=== PATIENT | female | born 2000 | race Hispanic/Latino ===

== ENCOUNTER 2019-07-05 18:25 | Outpatient (CLI) | payer MEDICAID ==
[2019-07-05] MEDS ORDERED: LACTATED RINGERS 500 ML IV ONE (18:30)
[2019-07-05 19:28] VITALS: BP 110/64
[2019-07-05 19:40] LABS: Bacteria,Urine 1+ /HPF (Negative); Bilirubin,Urine NEG (Negative); Blood,Urine NEG (Negative); Color,Urine Yellow (Yellow); Mucus,Urine 3+ /HPF; Protein,Urine <15 mg/dL mg/dL (Negative); Urobilinogen,Urine < 2.0 mg/dL (<2.0)
[2019-07-05] MEDS ORDERED: ONDANSETRON 4 MG/2 ML INJ IV ONE (20:04)
== END 2019-07-05 21:30 | disposition home or self-care (01) ==
LOC: TRG 18:25 → APU 18:26 → TRG 21:30
PROVIDERS: ATTEND Obstetrics & Gynecology
DX: O21.2 Late vomiting of pregnancy (principal); O47.03 False labor before 37 completed weeks of gestation, third trimester; Z3A.31 31 weeks gestation of pregnancy
CPT/HCPCS: 81001; J7120; J2405

== ENCOUNTER 2019-09-03 13:01 | Outpatient (CLI) | payer MEDICAID ==
--- NOTE | 2019-09-03 16:45 | Event Note ---
Date: 09/03/19 no change in SVE, remains /-2, posterior, medium softness. pt reports ctx have slowed down since resting. BPP 10/04, SOBEIDA 14. FHT reviewed reassuring. Plan to d/c home with labor precautions with PO vistaril.
--- NOTE | 2019-09-03 16:49 | Ultrasound Report ---
ULTRASOUND OBSTETRIC LIMITED ULTRASOUND BIOPHYSICAL PROFILE INDICATION / CLINICAL INFORMATION: Non reassurring FHT. COMPARISON: None available. FINDINGS: BREATHING MOVEMENT = 2 GROSS BODY MOVEMENT = 2 TONE = 2 QUALITATIVE AMNIOTIC FLUID VOLUME = 2 TOTAL BIOPHYSICAL SCORE = 8/8 AMNIOTIC FLUID INDEX (cm) = 14 PRESENTATION: Cephalic. HEART RATE (beats per minute): 161 ADDITIONAL FINDINGS: None. IMPRESSION: 1. Biophysical Score = 8/8 Signer Name: Greyson Alaniz MD Signed: 09/03/2019 4:45 PM Workstation Name: [employer]
[2019-09-03 17:14] VITALS: BP 119/70
== END 2019-09-03 17:24 | disposition home or self-care (01) ==
LOC: TRG 13:01 → APU 13:02 → TRG 17:24
PROVIDERS: ATTEND Obstetrics & Gynecology
DX: O47.1 False labor at or after 37 completed weeks of gestation (principal); Z3A.39 39 weeks gestation of pregnancy
CPT/HCPCS: 59025; 76815; 76819; Q0177

== ENCOUNTER 2019-09-05 14:33 | Inpatient (IN) | payer MEDICAID ==
[2019-09-05] MEDS ORDERED: MINERAL OIL 30 ML ORAL LIQD PO PRN (16:50)
[2019-09-05] MEDS ORDERED: LIDOCAINE (2%) 20 MG/1 ML VIAL 20 ML MDV INFILTRATI ONE (16:50)
[2019-09-05] MEDS ORDERED: ONDANSETRON 4 MG/2 ML INJ IV PRN (16:50)
[2019-09-05] MEDS ORDERED: BUTORPHANOL 2 MG/1 ML INJ IV PRN (16:50)
[2019-09-05] MEDS ORDERED: fentaNYL 100 MCG/2 ML INJ IV PRN (16:50)
[2019-09-05] MEDS ORDERED: TERBUTALINE 1 MG/1 ML INJ SUB-Q PRN (16:50)
[2019-09-05] MEDS ORDERED: OXYTOCIN DRIP 30 UNITS/500 ML BAG IV SCH (17:00)
[2019-09-05] MEDS ORDERED: OXYTOCIN 20 UNIT/1000ML DRIP 20 UNITS/1,000 ML BAG IV SCH (17:00)
--- NOTE | 2019-09-05 17:01 | History and Physical Report ---
History of Present Illness Date of examination: 09/05/19 Date of admission: 09/05/19 16:37 Chief complaint: SROM @ 1400 History of present illness: EDC Confirmation: 09/06/2019 Past History : 2 Term Births: 0 Premature Births: 0 Living Children: 0 Para: 0 Mult. Births: 0 Prev : 0 Aborta: 0 Elect. Ab: 0 Spont. Ab: 1 Ectopics: 0 Risk Factors: Smoked Tobacco Use: Current every day smoker Cigarettes: Yes -- 1 stick pack(s) per day, Year started: age 15 Years smoked: 3 Smokeless Tobacco Use: Never Counseled to quit/cut down: yes Tobacco Use Comments: Pt to try and cut back without medication Passive smoke exposure: yes Drug use: no HIV high-risk behavior: no Caffeine use: 1 drinks per day Alcohol use: no Exercise: yes Times per week: 1 Type of Exercise: walking Seatbelt use: preg-family and marriage counsellor % Sun Exposure: frequently Family History Risk Factors: Family History of [place] in females < 65 years old: no Family History of [place] in males < 55 years old: no Dietary Counseling: pn yes Past Medical History: Reviewed history and no changes required: Anxiety: since the age of 7 Past Surgical History: Reviewed history and no changes required: negative Past Medical History Anesthesia Complications: negative Anemia: negative Autoimmune Disorder: negative Bleeding Disorder: negative Blood Transfusions: negative Breast Disease: negative Diabetes: negative Heart Disease: negative Hypertension: negative Hepatitis/Liver Disease: negative Kidney Disease/UTI: negative Neurologic/Epilepsy/Migraines: negative Phlebitis/Varicosities: negative Psychiatric: positive, Anxiety Pulmonary Disease/Asthma: negative Thyroid Disease: negative Hospitalizations: negative Surgery (Non-general road supervisor): negative Abnormal PAP: negative SHAKIRA Exposure: negative Infertility: negative Uterine Anomaly: negative Uterine Surgery (not C/S): negative Other Gynecologic Problems: negative Family Hx: Mother: HTN Infection History Hx of STD: none HIV Risk Eval: no Hepatitis B Risk Eval: low risk Personal hx. of genital herpes: no Partner hx. of genital herpes: no Rash, Viral, or Febrile illness since last LMP? no Varicella/Chicken Pox Status: Unknown TB Risk: no Infection History Comments: Has never had chickenpox Genetic History Congenital Heart Defect: Mom: no Dad: no Alexis Disease: Mom: no Dad: no Thalassemia Mom: no Dad: no Neural Tube Defect Mom: no Dad: no Down's Syndrome Mom: no Dad: no Diego-Sachs Mom: no Dad: no Sickle Cell Disease/Trait Mom: no Dad: no Hemophilia Mom: no Dad: no Muscular Dystrophy Mom: no Dad: no Cystic Fibrosis Mom: no Dad: no [place] Chorea Mom: no Dad: no Mental Retardation Mom: no Dad: no Fragile X Mom: no Dad: no Other Genetic/Chromosomal Disorder Mom: no Dad: no Child w/other defect Mom: no Dad: no Enviromental Exposures Xray Exposure: no Medication, drug, or alcohol use since LMP: no Chemical/Other Exposure: no Exposure to Cat Liter: yes Hx of Parvovirus (Fifth Disease): no Occupational Exposure to Children: none Current Allergies (reviewed today): AUGMENTIN (AMOXICILLIN-POT CLAVULANATE) (Critical) Past History Past Medical History: other (see HPI) Past Surgical History: other (see HPI) WHOLESALE AGRONOMIST History: other (see HPI) Family/Genetic History: other (see HPI) - Obstetrical History Expected Date of Delivery: 09/06/19 Actual Gestation: 39 Week(s) 6 Day(s) : 2 Para: 0 Hx # Term Pregnancies: 0 Number of Pregnancies: 0 Spontaneous Abortions: 1 Induced : 0 Number of Living Children: 0 Medications and Allergies Allergies Allergy/AdvReac Type Severity Reaction Status Date / Time amoxicillin [From Augmentin] Allergy Rash Verified 07/05/19 19:31 clavulanic acid Allergy Rash Verified 07/05/19 19:31 [From Augmentin] Active Meds: Active Medications Butorphanol Tartrate (Stadol) 1 mg IV Q2H PRN PRN Reason: Pain, Moderate(4-6) LABOR PAIN Ephedrine Sulfate (Ephedrine Sulfate) 10 mg IV Q2M PRN PRN Reason: Hypotension Fentanyl (Sublimaze) 100 mcg IV Q2H PRN PRN Reason: Pain,Severe (7-10) LABOR PAIN Oxytocin/Sodium Chloride (Pitocin/Ns 20 Unit/1000ml Drip) 20 units in 1,000 mls @ 125 mls/hr IV DIRECT LOIS Oxytocin/Sodium Chloride (Pitocin/Ns 30 Unit/500ml) 30 units in 500 mls @ 4 mls/hr IV TITR LOIS; Protocol Lactated Ringer's (Lactated Ringers) 1,000 mls @ 125 mls/hr IV DIRECT LOIS Clindamycin HCl (Cleocin 900 Mg/50 Ml) 900 mg in 50 mls @ 100 mls/hr IV Q8HR LOIS; Protocol Lidocaine (Xylocaine 2%) 20 ml INFILTRATI ONCE ONE Stop: 09/05/19 16:51 Mineral Oil (Mineral Oil) 30 ml PO QHS PRN PRN Reason: Constipation Ondansetron HCl (Zofran) 4 mg IV Q8H PRN PRN Reason: Nausea And Vomiting Terbutaline Sulfate (Brethine) 0.25 mg SUB-Q ONCE PRN PRN Reason: Hyperstimulation/Hypertonicity Review of Systems All systems: negative - Vital Signs Vital signs: Vital Signs Pulse BP 102 H 114/77 09/05/19 14:59 09/05/19 14:59 Temp Pulse Resp BP Pulse Ox 98.8 F 100 H 16 114/78 09/05/19 16:43 09/05/19 15:18 09/05/19 15:18 09/05/19 15:18 - Physical Exam Breasts: Positive: normal Cardiovascular: Regular rate Lungs: Positive: Normal air movement Abdomen: Positive: normal appearance, soft, normal bowel sounds Genitourinary (Female): Positive: normal external genitalia, normal perenium Vulva: both: normal - Obstetrical FHR: category 1 Uterine Contraction Monitor Mode: External Cervical Dilatation: 4 (SROM - clear) Cervical Effacement Percentage: 80 station: -1 Uterine Contraction Pattern: Regular Uterine Tone Measurement Phase: Contraction Uterine Contraction Intensity: Mild Results All other labs normal. Assessment and Plan @ 39+6 weeks admitted for SROM - clear fluid. GBS +. Orders in EMR. Anticipate vaginal . - Patient Problems (1) 39 weeks gestation of Current Visit: Yes Status: Acute (2) SROM (spontaneous rupture of membranes) Current Visit: Yes Status: Acute Plan to address problem: Augment labor as needed limit SVE (3) Rh negative status during Current Visit: Yes Status: Acute Qualifiers: Trimester: third trimester Qualified Code(s): O26.893 - Other specified related conditions, third trimester; Z67.91 - Unspecified blood type, Rh negative Plan to address problem: Rhogam workup (4) Rubella non-immune status, antepartum Current Visit: Yes Status: Acute Plan to address problem: MMR (5) Group B Streptococcus carrier state affecting Onset Date: ~08/24/19 Current Visit: No Status: Acute Plan to address problem: Antibiotics q8hrs until delivery
[2019-09-05] MEDS: LACTATED RINGERS 1,000 ML IV SCH ×3 (17:13→21:34)
[2019-09-05 17:43] LABS: Hematocrit 32.4 % (30.3-42.9); Hemoglobin 10.6 gm/dl (10.1-14.3); Mean Corpuscular HGB Conc 33 % (30-34); Mean Corpuscular Volume 85 fl (79-97); Platelet Count 273 K/mm3 (140-440); Red Blood Count 3.79 M/mm3 (3.65-5.03); Red Cell Distribution Width 13.5 % (13.2-15.2)
--- NOTE | 2019-09-05 18:13 | Event Note ---
Date: 09/05/19 Phone call with Alma Rosa She states irregular contractions just starting pitocin will start at 4mu and increase per protocol orders
[2019-09-05] MEDS ORDERED: DEXMEDETOMIDINE 200 MCG/2 ML VIAL IV ONE (20:09)
[2019-09-05] MEDS ORDERED: NALOXONE 2 MG/2 ML INJ IV PRN (20:26)
[2019-09-05] MEDS ORDERED: ePHEDrine SULFATE 50 MG/1 ML INJ IV PRN (20:26)
--- NOTE | 2019-09-05 20:27 | Anesthesia Consultation ---
Anesthesia Consult and Med Hx Date of service: 09/05/19 - Airway Anesthetic Teeth Evaluation: Good ROM Head & Neck: Adequate Mental/Hyoid Distance: Adequate Mallampati Class: Class II Intubation Access Assessment: Probably Good - Pulmonary Exam CTA: Yes - Cardiac Exam Cardiac Exam: RRR - Pre-Operative Health Status ASA Pre-Surgery Classification: ASA2 Proposed Anesthetic Plan: Epidural - Pulmonary Hx Smoking: Yes Hx Asthma: No COPD: No Hx Pneumonia: No - Cardiovascular System Hx Hypertension: No - Central Nervous System Hx Seizures: No Hx Psychiatric Problems: Yes (ANXIETY) - Endocrine Hx Renal Disease: No Hx End Stage Renal Disease: No Hx Hypothyroidism: No Hx Hyperthyroidism: No - Hematic Hx Anemia: No Hx Sickle Cell Disease: No - Other Systems Hx Alcohol Use: No
--- NOTE | 2019-09-05 20:28 | Progress Note ---
Labor Epidural - Labor Epidural Start Time: 20:08 Stop Time: 20:18 Performed by:: KAZ RINALDI Procedure: Patient is requesting epidural for labor pain. H&P, and labs reviewed. Procedure explained, questions answered, consent obtained. Patient in sitting position with blood pressure cuff and pulse ox on and working. Timeout performed immediately before start of procedure. Sterile betadine prep/drape. 3 mL 1% lidocaine skin wheal at L[3]-L[4]. 18-gauge Touhy epidural needle advanced to [id number] with saline at 5 cm. 27-gauge spinal needle advanced until clear, free-flowing CSF. Intrathecal dexmedetomidine [5] mcg administered and needle removed. Epidural catheter advanced to 10 cm, negative aspiration for blood and csf, negative test dose 3 ml 1.5% lidocaine with epinephrine. Sterile steri-strips and tegaderm applied, followed by tape reinforcement. Patient tolerated procedure well.
[2019-09-05] MEDS: ePHEDrine SULFATE 50 MG/1 ML INJ IV PRN ×2 (20:33→20:42)
--- NOTE | 2019-09-05 20:41 | Event Note ---
Date: 09/05/19 Call to RN patient just received epidural no change in cervix will restart pitocin
[2019-09-05] MEDS ORDERED: fentaNYL-BUPIV 2 MCG/ML-0.125% 200 MCG/100 ML BAG EPIDURAL SCH (21:00)
[2019-09-06] MEDS ORDERED: METOCLOPRAMIDE 10 MG/2 ML INJ ONE (02:32)
[2019-09-06] MEDS ORDERED: FAMOTIDINE 20 MG/2 ML INJ IV ONE (02:32)
[2019-09-06] MEDS ORDERED: BICITRA ORAL LIQD 30ML ONE (02:32)
[2019-09-06] MEDS ORDERED: propofoL 200 MG/20 ML VIAL IV ONE (02:39)
[2019-09-06] MEDS ORDERED: SUCCINYLCHOLINE CHLORIDE 200 MG/10 ML INJ MDV ONE (02:39)
[2019-09-06] MEDS ORDERED: WATER FOR IRRIG STERILE 1,500 ML BOTTLE IR ONE (02:42)
[2019-09-06] MEDS ORDERED: SODIUM CHLORIDE 0.9% IRR 1,500 ML BOTTLE IR ONE (02:42)
[2019-09-06] MEDS ORDERED: ceFAZolin/STERILE WATER 2 GM/20 ML SYRINGE IV ONE (02:45)
[2019-09-06] MEDS ORDERED: PHENYLEPHRINE/NS 1,000 MCG/10 ML SYRINGE (OR USE) IV ONE (03:08)
[2019-09-06] MEDS ORDERED: ONDANSETRON 4 MG/2 ML INJ ONE (03:08)
[2019-09-06] MEDS ORDERED: BUPIVACAINE/PF (0.5%) 5 MG/1 ML 30 ML VIAL INFILTRATI ONE (03:09)
[2019-09-06] MEDS ORDERED: KETOROLAC 30 MG/1 ML INJ ONE (03:09)
[2019-09-06] MEDS ORDERED: LIDOCAINE 2%/EPINEPHRINE 1:200,000 VIAL (20 ML) INFILTRATI ONE (03:09)
--- NOTE | 2019-09-06 04:00 | Operative Report ---
Operative Report Operative Report: Date of procedure: September 06, 2019 Pre-operative diagnosis: Intrauterine of 40 weeks nonreassuring heart tracing with recurrent late heart rate decelerations, arrest of descent and prolonged bradycardia Post-operative diagnosis: Same Procedure name(s): Stat primary low transverse section Surgeon: Adrian Eller MD Career Guidance Counselor: Beatrice FREIRE Anesthesia: Gen. EBL: 500 mL Complications: None Findings: Normal uterus and tubes and ovaries bilaterally. Male with nuchal cord x1. Weight 8 pounds 5 ounces. Apgars 8 at 1 minute and 9 at 5 minutes Specimen(s): None Indications: Patient labor progress to a cervical dilatation of 10 cm with a station of 0. We had several attempts of trying the push the baby do vaginal delivery, but with this pushing the heart rate will continuously drop into the 80s and 70 bpm range with slow recovery. No resolution with changing of position and knee-chest position continue to have the bradycardia and decision was made to move quickly for operative delivery Procedure: The patient was brought to the operating room in a stat fashion. She was then placed in left lateral tilt. Prepped and draped in the usual sterile manner. Patient epidural level was not adequate for surgery. Gen. anesthesia was induced without difficulty. A Pfannenstiel incision was made. This incision was taken down to the fascia. The fascia was then nicked in the midline. This incision was extended out laterally with Howard scissors. The fascia was then sharply and bluntly from the underlying rectus muscles. The rectus muscles were bluntly and sharply . The peritoneum was then entered with the metallic yarn slitting machine operator's fingers. This incision was spread vertically with care not to damage the bladder below. Bladder blade was placed. The bladder flap was then formed sharply and bluntly with Metzenbaum scissors. Bladder blade replaced. A transverse incision was made in lower uterine segment. This incision was extended laterally with the operators fingers. The amniotic sac was then entered bluntly with the metallic yarn slitting machine operator's fingers. The was delivered from the vertex position. Bulb suction on the mother's abdomen. Cord was double clamped and cut. The infant was then passed to the nursery personnel who were in attendance. The above scores were given by the nursery personnel. The placenta was then bluntly removed. The uterus was then externalized and wiped clean the remaining products. The uterine incision was closed in layers. The first incision was closed in a locking manner using 0 Vicryl. This was followed by imbricating stitch also with 0 Vicryl. This closure was hemostatic. The bladder flap was copiously irrigated and found to be hemostatic. The pelvis was copiously irrigated and found to be hemostatic. The uterus was then placed back to the patient's abdomen. The retractors were removed. The rectus muscles were inspected and found to be hemostatic. The fascia was then closed in a running manner using 0 Vicryl. This incision was hemostatic irrigation Bovie. The skin was reapproximated with 4-0 Vicryl subcuticularly. The patient tolerated procedure well. Her urine was clear. The was admitted to the [facility] nursery. The patient was accompanied to recovery room in good condition. Instrument count correct 3.
[2019-09-06] MEDS ORDERED: WITCH HAZEL/ GLYCERIN PAD TP PRN (05:37)
[2019-09-06] MEDS ORDERED: ONDANSETRON 4 MG/2 ML INJ IV PRN (05:37)
[2019-09-06] MEDS ORDERED: HYDROcodone/ACETAMINOPHEN 5-325 MG TAB PO PRN (05:37)
[2019-09-06] MEDS ORDERED: OXYTOCIN 20 UNIT/1000ML DRIP 20 UNITS/1,000 ML BAG IV SCH (05:37)
[2019-09-06] MEDS ORDERED: ACETAMINOPHEN 325 MG TAB PO PRN (05:37)
[2019-09-06] MEDS ORDERED: NALOXONE 0.4 MG/1 ML INJ IV PRN (05:37)
[2019-09-06] MEDS ORDERED: MAGNESIUM HYDROXIDE (MOM) ORAL LIQD UDC PO PRN (05:37)
[2019-09-06] MEDS ORDERED: D5W/LACTATED RINGERS 1,000 ML IV SCH (05:37)
[2019-09-06] MEDS ORDERED: LANOLIN/ZINC/DIMETHICONE (LANSINOH) 7 GM TP PRN (05:37)
[2019-09-06] MEDS ORDERED: BICITRA ORAL LIQD 30ML PO ONE (06:23)
[2019-09-06] MEDS ORDERED: METOCLOPRAMIDE 10 MG/2 ML INJ IV ONE (07:00)
[2019-09-06] MEDS ORDERED: FAMOTIDINE 20 MG TAB PO NR (07:00)
[2019-09-06] MEDS: KETOROLAC 30 MG/1 ML INJ IV SCH ×3 (07:03→17:47)
[2019-09-06] MEDS: CLINDAMYCIN 600 MG/50 mL 600 MG/50 ML BAG IV SCH ×2 (08:13→16:35)
[2019-09-06] MEDS: PRENATAL VIT27-FE FUMARATE-FOLIC ACID VIT TAB PO SCH (09:33)
[2019-09-06] MEDS: FERROUS SULFATE 325 MG TAB PO SCH (09:33)
--- NOTE | 2019-09-06 17:33 | Progress Note ---
Assessment and Plan A: 19 y.o. s/p primary at term post op 14 hours. Pain medication now 2 Byron. P: Will monitor pain response after pain medication change. Continue with care. Subjective - Subjective Date of service: 09/06/19 (still having pain) Principal diagnosis: s/p primary @ term, POD 14 hours Patient reports: appetite normal, pain poorly controlled, ambulating normally : doing well Objective - Vital Signs Latest vital signs: Vital Signs Temp Pulse Resp BP BP Pulse Ox 09/06/19 07:03 18 09/06/19 06:37 97.4 F L 66 18 131/88 100 09/06/19 06:08 97.6 F 66 16 111/78 99 09/06/19 05:30 97 F L 83 18 120/83 09/06/19 05:15 97.0 F L 64 18 110/77 97 09/06/19 05:00 74 19 117/82 99 09/06/19 04:45 56 L 13 135/89 09/06/19 04:30 70 18 135/89 98 09/06/19 04:15 97.4 F L 58 L 16 133/93 98 09/06/19 03:55 66 23 130/89 100 09/06/19 03:50 96.5 F L 60 19 137/81 100 09/06/19 03:45 73 19 137/81 100 09/06/19 03:40 95.6 F L 62 16 128/89 100 09/06/19 02:32 107 H 121/76 09/06/19 02:21 76 100 09/06/19 02:17 68 149/67 09/06/19 02:16 71 100 09/06/19 02:11 76 100 09/06/19 02:06 84 100 09/06/19 02:01 85 119/81 99 09/06/19 01:56 76 99 09/06/19 01:51 77 99 09/06/19 01:48 68 122/81 09/06/19 01:46 71 100 09/06/19 01:41 70 100 09/06/19 01:36 68 100 09/06/19 01:31 78 102/66 100 09/06/19 01:26 72 100 09/06/19 01:21 75 100 09/06/19 01:16 79 102/67 100 09/06/19 01:11 73 100 09/06/19 01:06 67 100 09/06/19 01:02 85 97/53 09/06/19 01:01 92 H 100 09/06/19 00:56 95 H 100 09/06/19 00:51 78 100 09/06/19 00:46 83 107/80 100 09/06/19 00:41 85 100 09/06/19 00:36 68 100 09/06/19 00:33 76 120/80 09/06/19 00:31 71 100 09/06/19 00:26 67 100 09/06/19 00:21 67 100 09/06/19 00:16 72 108/77 100 09/06/19 00:11 63 100 09/06/19 00:06 64 100 09/06/19 00:02 80 110/77 09/06/19 00:01 79 98 09/05/19 23:56 73 98 09/05/19 23:51 85 98 09/05/19 23:47 72 105/70 09/05/19 23:46 70 98 09/05/19 23:41 81 99 09/05/19 23:36 77 98 09/05/19 23:33 72 109/67 09/05/19 23:31 74 98 09/05/19 23:26 71 98 09/05/19 23:21 73 98 09/05/19 23:17 72 109/65 09/05/19 23:16 70 98 09/05/19 23:11 74 98 09/05/19 23:06 78 98 09/05/19 23:01 82 122/74 98 09/05/19 22:56 79 98 09/05/19 22:51 74 99 09/05/19 22:46 68 132/84 99 09/05/19 22:41 97 H 99 09/05/19 22:36 65 100 09/05/19 22:31 68 138/92 100 09/05/19 22:26 79 100 09/05/19 22:21 74 100 09/05/19 22:18 74 122/89 09/05/19 22:16 75 100 09/05/19 22:11 87 100 09/05/19 22:06 82 100 09/05/19 22:02 66 119/77 09/05/19 22:01 69 100 09/05/19 21:56 82 99 09/05/19 21:51 77 100 09/05/19 21:49 66 123/71 09/05/19 21:46 72 100 09/05/19 21:41 63 100 09/05/19 21:36 73 100 09/05/19 21:31 60 118/71 100 09/05/19 21:28 71 109/71 09/05/19 21:26 65 100 09/05/19 21:21 60 100 09/05/19 21:16 59 L 100 09/05/19 21:11 74 100 09/05/19 21:06 74 100 09/05/19 21:01 66 114/67 100 09/05/19 20:59 68 120/70 09/05/19 20:57 77 113/71 09/05/19 20:56 84 100 09/05/19 20:55 66 115/73 09/05/19 20:53 73 115/70 09/05/19 20:51 85 115/71 100 09/05/19 20:49 82 114/77 09/05/19 20:47 63 112/68 09/05/19 20:46 64 100 09/05/19 20:45 57 L 116/71 09/05/19 20:43 62 120/76 09/05/19 20:41 69 116/60 99 09/05/19 20:39 61 119/62 09/05/19 20:37 71 121/66 09/05/19 20:36 70 97 09/05/19 20:35 72 121/65 09/05/19 20:33 67 114/71 09/05/19 20:31 65 114/71 98 09/05/19 20:29 72 119/71 09/05/19 20:27 73 111/78 09/05/19 20:26 68 98 09/05/19 20:25 73 113/70 09/05/19 20:24 63 125/71 09/05/19 20:21 74 116/82 99 09/05/19 20:19 67 115/78 09/05/19 20:16 67 98 09/05/19 20:11 77 99 09/05/19 20:06 71 98 09/05/19 20:03 71 136/90 09/05/19 20:01 67 98 09/05/19 19:56 65 98 09/05/19 19:51 63 99 09/05/19 19:46 70 99 09/05/19 19:45 98.1 F 70 18 131/84 100 09/05/19 19:41 77 98 09/05/19 19:33 83 131/84 99 09/05/19 19:28 74 99 09/05/19 19:23 71 97 09/05/19 19:18 70 99 09/05/19 19:13 72 98 09/05/19 19:08 98 09/05/19 19:02 74 122/80 09/05/19 19:01 75 98 09/05/19 18:56 72 98 09/05/19 18:51 71 99 09/05/19 18:46 77 99 09/05/19 18:41 75 99 09/05/19 18:36 82 98 09/05/19 18:33 71 116/75 09/05/19 18:31 72 99 09/05/19 18:26 76 98 09/05/19 18:21 80 99 09/05/19 18:16 85 99 09/05/19 18:11 81 99 09/05/19 17:55 83 98 Intake and Output 09/06/19 09/06/19 09/06/19 06:59 14:59 22:59 Intake Total 1067.733 50 Output Total 3250 Balance -2182.267 50 Intake: IV 1067.733 50 CLEOCIN 600 MG/50 mL 600 50 mg In 50 ml @ 100 mls/hr IV Q8H LOIS Rx#:[id number] CLEOCIN 900 MG/50 mL 900 50 mg In 50 ml @ 100 mls/hr IV Q8HR LOIS Rx#:[id number] PITOCin/NS 30 UNIT/500ML 17.733 30 units In 500 ml @ 4 mls/hr IV TITR LOIS Rx#: [id number] Output: Urine 3250 Indwelling Catheter 1000 Ureteral 1300 Void 300 Other: Total, Output Amount 1300 # Voids Indwelling Catheter 400 - Exam Narrative Exam: VSS. Adequate I&O's, H/H 10.1/31.5. Breasts: Present: deferred Cardiovascular: Present: Regular rate Lungs: Present: Normal air movement Abdomen: Present: normal appearance, soft, normal bowel sounds Vulva: both: normal Uterus: Present: normal, firm Extremities: Present: normal Deep Tendon Reflex Grade: Normal +2 Incision: Present: suppurative, intact, dressed Comments: Pt with c/o pain and burning in the incision area. Received 1 Byron without relief. Byron changed to 2. RN taking care of patient aware. Spoke with pt and updated her on plans to receive 2 pain pills, instead of one and we will monitor her pain to make sure that she gets some relief. Pt verbalized understanding. - Labs Labs: Abnormal lab results 09/05/19 Range/Units 17:10 WBC 12.0 H (4.5-11.0) K/mm3
[2019-09-06] MEDS: HYDROcodone/ACETAMINOPHEN 5-325 MG TAB PO PRN (17:46)
[2019-09-06 18:19] LABS: Hematocrit 31.5 % (30.3-42.9); Hemoglobin 10.1 gm/dl (10.1-14.3)
[2019-09-07] MEDS: KETOROLAC 30 MG/1 ML INJ IV SCH ×2 (00:39→06:00)
[2019-09-07] MEDS ORDERED: MEASLES, MUMPS & RUBELLA 12,500 UNIT/0.5 ML VACCINE SUB-Q ONE (06:00)
[2019-09-07] MEDS: IBUPROFEN 800 MG TAB PO PRN ×2 (07:30→21:47)
[2019-09-07] MEDS: HYDROcodone/ACETAMINOPHEN 5-325 MG TAB PO PRN ×2 (09:56→16:23)
[2019-09-07] MEDS: PRENATAL VIT27-FE FUMARATE-FOLIC ACID VIT TAB PO SCH (09:56)
[2019-09-07] MEDS: FERROUS SULFATE 325 MG TAB PO SCH (09:56)
--- NOTE | 2019-09-07 12:08 | Progress Note ---
Assessment and Plan patient doing well, no complaints. VSSAf, H&H 10.1/31.5. lochia scant, fundus firm - Patient Problems (1) Rh negative status during Current Visit: Yes Status: Acute Qualifiers: Trimester: third trimester Qualified Code(s): O26.893 - Other specified related conditions, third trimester; Z67.91 - Unspecified blood type, Rh negative Plan to address problem: Rhogam workup (2) Rubella non-immune status, antepartum Current Visit: Yes Status: Acute Plan to address problem: MMR prior to d/c home (3) delivery delivered Current Visit: Yes Status: Acute Plan to address problem: continue to advance diet and activity as tolerated Shower this afternoon - rn will remove dressing after shower. Consider d/c home tomorrow Subjective - Subjective Date of service: 09/07/19 Principal diagnosis: postop day #1 s/p c/s Interval history: EDC Confirmation: 09/06/2019 Past History : 2 Term Births: 0 Premature Births: 0 Living Children: 0 Para: 0 Mult. Births: 0 Prev : 0 Aborta: 0 Elect. Ab: 0 Spont. Ab: 1 Ectopics: 0 Risk Factors: Smoked Tobacco Use: Current every day smoker Cigarettes: Yes -- 1 stick pack(s) per day, Year started: age 15 Years smoked: 3 Smokeless Tobacco Use: Never Counseled to quit/cut down: yes Tobacco Use Comments: Pt to try and cut back without medication Passive smoke exposure: yes Drug use: no HIV high-risk behavior: no Caffeine use: 1 drinks per day Alcohol use: no Exercise: yes Times per week: 1 Type of Exercise: walking Seatbelt use: preg-career counselor % Sun Exposure: frequently Family History Risk Factors: Family History of [place] in females < 65 years old: no Family History of [place] in males < 55 years old: no Dietary Counseling: pn yes Past Medical History: Reviewed history and no changes required: Anxiety: since the age of 7 Past Surgical History: Reviewed history and no changes required: negative Past Medical History Anesthesia Complications: negative Anemia: negative Autoimmune Disorder: negative Bleeding Disorder: negative Blood Transfusions: negative Breast Disease: negative Diabetes: negative Heart Disease: negative Hypertension: negative Hepatitis/Liver Disease: negative Kidney Disease/UTI: negative Neurologic/Epilepsy/Migraines: negative Phlebitis/Varicosities: negative Psychiatric: positive, Anxiety Pulmonary Disease/Asthma: negative Thyroid Disease: negative Hospitalizations: negative Surgery (Non-disk recordist): negative Abnormal PAP: negative SHAKIRA Exposure: negative Infertility: negative Uterine Anomaly: negative Uterine Surgery (not C/S): negative Other Gynecologic Problems: negative Family Hx: Mother: HTN Infection History Hx of STD: none HIV Risk Eval: no Hepatitis B Risk Eval: low risk Personal hx. of genital herpes: no Partner hx. of genital herpes: no Rash, Viral, or Febrile illness since last LMP? no Varicella/Chicken Pox Status: Unknown TB Risk: no Infection History Comments: Has never had chickenpox Genetic History Congenital Heart Defect: Mom: no Dad: no Alexis Disease: Mom: no Dad: no Thalassemia Mom: no Dad: no Neural Tube Defect Mom: no Dad: no Down's Syndrome Mom: no Dad: no Diego-Sachs Mom: no Dad: no Sickle Cell Disease/Trait Mom: no Dad: no Hemophilia Mom: no Dad: no Muscular Dystrophy Mom: no Dad: no Cystic Fibrosis Mom: no Dad: no [place] Chorea Mom: no Dad: no Mental Retardation Mom: no Dad: no Fragile X Mom: no Dad: no Other Genetic/Chromosomal Disorder Mom: no Dad: no Child w/other defect Mom: no Dad: no Enviromental Exposures Xray Exposure: no Medication, drug, or alcohol use since LMP: no Chemical/Other Exposure: no Exposure to Cat Liter: yes Hx of Parvovirus (Fifth Disease): no Occupational Exposure to Children: none Current Allergies (reviewed today): AUGMENTIN (AMOXICILLIN-POT CLAVULANATE) (Critical) Patient reports: appetite normal, voiding normally, pain well controlled, flatus, ambulating normally, no dizzy ambulation, no nauseated : doing well, nursing well (breast and bottle feeding) Objective - Vital Signs Latest vital signs: Vital Signs Temp Pulse Resp BP BP Pulse Ox 09/07/19 08:20 97.9 F 86 18 116/80 97 09/07/19 07:30 18 09/07/19 00:00 98.2 F 86 18 128/73 99 09/06/19 17:31 98.1 F 99 H 18 109/81 97 Intake and Output 09/06/19 09/07/19 09/07/19 23:59 07:59 15:59 Intake Total 240 240 Output Total 300 Balance -60 240 Intake: Oral 240 240 Output: Urine 300 Void 300 Other: Total, Intake Amount 240 240 Total, Output Amount 300 # Voids Indwelling Catheter 400 - Exam Breasts: Present: normal, Cardiovascular: Present: Regular rate Lungs: Present: Clear to auscultation, Normal air movement Abdomen: Present: normal appearance, soft Vulva: both: normal Uterus: Present: normal, firm Extremities: Present: normal Deep Tendon Reflex Grade: Normal +2 Incision: Present: normal, dry, dressed
[2019-09-08] MEDS: KETOROLAC 30 MG/1 ML INJ IV SCH (00:04)
[2019-09-08] MEDS: HYDROcodone/ACETAMINOPHEN 5-325 MG TAB PO PRN ×2 (00:06→11:05)
[2019-09-08] MEDS ORDERED: DIPHtheria,PERTUSSIS(ACELL),TETANUS VACCINE/PF 0.5 ML VIAL IM ONE (06:00)
[2019-09-08] MEDS: IBUPROFEN 800 MG TAB PO PRN (06:30)
[2019-09-08 09:54] VITALS: BP 124/77
[2019-09-08] MEDS: FERROUS SULFATE 325 MG TAB PO SCH (11:05)
[2019-09-08] MEDS: PRENATAL VIT27-FE FUMARATE-FOLIC ACID VIT TAB PO SCH (11:05)
--- NOTE | 2019-09-08 12:04 | Discharge Summary ---
Providers - Providers Date of Admission: 09/05/19 16:37 Date of discharge: 09/08/19 (desires d/c home) Attending physician: LAURA CUBA 09/06/19 05:37 Consult to [employer] Technician [CONS] Routine Reason For Exam: Primary care physician: KENDELL MILLER Hospitalization Reason for admission: SROM, Labor Condition: Good Pertinent studies: postop H&H 10.31.5 Procedures: primary c/s Hospital course: uncomplicated c/s and postop course Disposition: DC-01 TO HOME OR SELFCARE - Discharge Diagnoses (1) Rh negative status during Status: Acute Qualifiers: Trimester: third trimester Qualified Code(s): O26.893 - Other specified related conditions, third trimester; Z67.91 - Unspecified blood type, Rh negative (2) Rubella non-immune status, antepartum Status: Acute (3) delivery delivered Status: Acute Core Measure Documentation - Palliative Care Palliative Care/ Comfort Measures: Not Applicable - Core Measures Any of the following diagnoses?: none Exam - Constitutional Vitals: Temp Pulse Resp BP Pulse Ox 98 F 66 18 124/77 98 09/08/19 08:30 09/08/19 08:30 09/08/19 08:30 09/08/19 08:30 09/08/19 08:30 General appearance: Present: no acute distress, well-nourished - EENT Eyes: Present: PERRL ENT: hearing intact, clear oral mucosa - Neck Neck: Present: supple, normal ROM - Respiratory Respiratory effort: normal Respiratory: bilateral: CTA - Cardiovascular Rhythm: regular Heart Sounds: Absent: rub, click - Extremities Extremities: pulses symmetrical, No edema - Integumentary Integumentary: Present: clear, warm, dry - Musculoskeletal Musculoskeletal: gait normal, strength equal bilaterally - Psychiatric Psychiatric: appropriate mood/affect, intact judgment & insight - Neurologic Neurologic: CNII-XII intact, moves all extremities - Additional findings Additional findings: lochia scant, fundus firm, incision D&I, breast and bottle feeding Plan Activity: no restrictions Diet: regular Wound: open to air, keep clean and dry Care Plan Goals: [] Smoking cessation referral if applicable(refer to patient education folder for contact #) [] Refer to [facility] Booklet Call your doctor immediately for: * Fever > 100.5 * Heavy vaginal bleeding ( >1 pad per hour) * Severe persistent headache * Shortness of breath * Reddened, hot, painful area to leg or breast * Drainage or odor from incision. * Keep incision clean and dry at all times and follow doctor's instructions regarding bathing/showering Follow up with: KENDELL MILLER MD [Primary Care Provider] - 7 Days (Congratulations! Please call [phone] to schedule your incision check and your son's circumcision in 1 week. Bring EMLA cream to your son's visit and await for further teaching. Call for any questions or concerns.) Forms: [facility] Discharge Summary Prescriptions: Lidocain2.5%/Prilocai2.5% [Emla] 5 gm TP ONCE #1 tube Ferrous Sulfate [Feosol 325 MG tab] 325 mg PO BID #60 tablet Ibuprofen [Motrin 800 MG tab] 800 mg PO Q6H PRN #30 tablet PRN Reason: Pain oxyCODONE /ACETAMINOPHEN [Percocet 5/325 mg] 1 tab PO Q6HR PRN #20 tablet PRN Reason: Pain
== END 2019-09-08 14:15 | disposition home or self-care (01) | DRG 766 ==
LOC: APU 14:33 → TRG 14:33 → LD 16:37 → OB 09-06 05:36
PROVIDERS: ADMIT Obstetrics & Gynecology; ATTEND Obstetrics & Gynecology
PROC: 10D00Z1 Extraction of Products of Conception, Low, Open Approach (ICD-10-PCS; principal; 2019-09-06)
PROC: 3E0234Z Introduction of Serum, Toxoid and Vaccine into Muscle, Percutaneous Approach (ICD-10-PCS; 2019-09-07)
DX: O76 Abnormality in fetal heart rate and rhythm complicating labor and delivery (principal); O99.824 Streptococcus B carrier state complicating childbirth; Z3A.40 40 weeks gestation of pregnancy; Z37.0 Single live birth; Z23 Encounter for immunization; Z82.49 Family history of ischemic heart disease and other diseases of the circulatory system; O26.893 Other specified pregnancy related conditions, third trimester; O99.334 Smoking (tobacco) complicating childbirth; F17.210 Nicotine dependence, cigarettes, uncomplicated; Z88.8 Allergy status to other drugs, medicaments and biological substances; Z67.11 Type A blood, Rh negative
CPT/HCPCS: 36415; 59025; 76815; 76819; 85014; 85018; 85027; 86592; 86850; 86900; 86901; 90471; 90715; G0378; J0330; J0690; J1885; J2370; J2405; J2590; J2704; J2765; J3490; J7120; Q0177